=== PATIENT | male | born 1995 | race Caucasian/White ===

== ENCOUNTER 2024-09-11 09:01 | Emergency (ER) | payer BC, SELFPAY ==
[2024-09-11 09:16] VITALS: BP 131/81; PULSE 72; RESP 18; TEMP 36.6; O2SAT 95; BMI 25.5
[2024-09-11 09:28] LABS: Basophils % 0.6 %; Eosinophils # 0.4 10^3/uL (0.0-0.8); Eosinophils % 5.5 %; Hematocrit 41.6 % (37-53); Lymphocytes # 2.1 10^3/uL (0.8-4.8); Lymphocytes % 32.6 %; Mean Corpuscular HGB Conc 33.2 g/dL (30-55); Mean Corpuscular Hemoglobin 29.6 pg (27-33); Mean Corpuscular Volume 89.1 fl (82-101); Mean Platelet Volume 8.6 fL (7.4-10.4); Monocytes # 0.5 10^3/uL (0.2-0.9); Monocytes % 7.5 %; Neutrophils # 3.43 10^3/uL (1.8-7.7); Neutrophils % 53.3 %; Nucleated Red Blood Cells % 0 %; Platelet Count 282 10^3/cmm (157-399); Red Blood Count 4.67 10^6/uL (3.85-5.65); Red Cell Distribution Width 12.3 % (12.1-15.1); White Blood Count 6.42 10^3/uL (3.29-11.43)
--- NOTE | 2024-09-11 09:37 | ED_ITS ---
HPI - GI Bleed 2 General: Chief complaint: GI Bleed Stated complaint: blood in stool and urine Time Seen by Provider: 09/11/24 09:12 History of Present Illness: 29-year-old male presents emergency plan ing of left lower quadrant pain as well as bright red blood per rectum for the last 3 to 4 days. He is also noticed some hematuria that began this morning. No previous abdominal surgeries. He is concerned in part because he had recently started meloxicam. Associated symptoms: Denies abdominal pain, chills, fever(s) or rash Related Data Home Medications ?Medication ?Instructions ?Recorded ?Confirmed albuterol sulfate 90 mcg/actuation 1 inh inhalation UT N PRN Shortness 09/11/24 09/11/24 aerosol inhaler (Ventolin HFA) Of Breath Or Wheezing meloxicam 15 mg tablet 15 mg PO DAILY 09/11/2408/17 Previous Rx's ?Medication ?Instructions ?Recorded ciprofloxacin HCl 500 mg tablet 500 mg PO BID #14 tabs 09/11/24 (Cipro) hydrocodone 5 mg-acetaminophen 325 1 tab PO Q6H PRN pa in #10 tabs 09/11/24 mg tablet metronidazole 500 mg tablet 500 mg PO BID 7 days #14 t abs 09/11/24 promethazine 25 mg tablet 25 mg PO Q6H PRN nausea and 09/11/24 vomiting #20 tabs Allergies Allergy/AdvReac Type Severity Reaction Status Date / Time shellfish derived Allergy Unknown Verified 09/11/24 09:24 Review of Systems 2 Const: Denies: fever(s) or chills Card: Denies: chest pain Resp: Denies: dyspnea GI: Reports: hematochezia; Denies: abdominal pain : Reports: hematuria; Denies: dysuria, urinary frequency or urinary urgency Musc: Denies: neck pain or back pain Skin/Breast: Denies: rash Physical Exam 2 Const: COMMON NORMALS: no acute distress GENERAL APPEARANCE: cooperative and comfortable ORIENTATION/CONSCIOUSNESS: Yes awake, Yes oriented to person, Yes oriented to place and Yes oriented to time HENMT: COMMON NORMALS: normocephalic, atraumatic and hearing grossly normal bilaterally HEAD & SCALP: normocephalic and atraumatic Resp: COMMON NORMALS: normal respiratory effort, No retractions, No use of accessory muscles and clear to auscultation bilaterally AUSCULTATION: clear to auscultation bilaterally Cardio: COMMON NORMALS: regular rate, regular rhythm and No murmurs present (Cardio) RATE: regular rate RHYTHM: regular rhythm GI: COMMON NORMALS: No hepatosplenomegaly present AUSCULTATION: Yes normoactive bowel sounds PALPATION: Yes Tenderness to palpation present (GI) Details: LLQ, No Guarding due to palpation present (GI) and Yes No hepatosplenomegaly present Extremity: COMMON NORMALS: normal to inspection, capillary refill normal, no clubbing, cyanosis or edema, no calf tenderness and no pedal edema Neuro: SENSORIUM/ORIENTATION: Yes oriented to person, Yes oriented to place and Yes oriented to time Skin: COMMON NORMALS: no rashes or lesions noted GENERAL SKIN EXAM: no rashes or lesions noted Course 2 Vital Signs: Vital signs: Vital Signs Temperature 97.9 F 09/11/24 09:16 Pulse Rate 71 09/11/24 12:14 Respiratory Rate 18 09/11/24 09:16 Blood Pressure 124/67 09/11/24 12:14 Pulse Oximetry 98 09/11/24 12:14 Oxygen Delivery Me thod Room Air 09/11/24 09:16 MDM - GI Bleed Medical Decision Making Rectal exam no no external hemorrhoids no masses noted. No active bleeding. Suspect he has a subclinical diverticulitis he is mildly moderately tender in the left lower quadrant with your diverticuli but no radiographic evidence of active infection. Given his tenderness in that region however we will go ahead and start him on Cipro and Flagyl. Suspect it is for the rectal bleeding is coming from as well. We did not see any blood in his urine. I gave him diet instructions encouraged him to follow-up with his primary care doctor given his age who probably should have an early colonoscopy for this episode of rectal bleeding that could be done at some point in the future after this has been treated. Medical Records I reviewed the patient's medical records. Lab Data I reviewed the patient's lab results. 09/11/24 09:21 09/11/24 09:21 Radiology Impressions Abdomen/Pelvis CT 09/11/24 10:05 IMPRESSION: 1. No acute findings in the abdomen or pelvis. 2. Normal appendix. 3. A few sigmoid diverticuli. No evidence of acute diverticulitis. Notified Chris Plasencia DO at 09/11/2024 11:47 AM. Laboratory Results WBC 6.42 10^3/uL (3.29-11.43) 09/11/24 09:21 RBC 4.67 10^6/uL (3.85-5.65) 09/11/24 09:21 Hgb 13.80 g/dL (11.27-16.99) 09/11/24 09:21 Hct 41.6 % (37-53) 09/11/24 09:21 MCV 89.1 fl (82-101) 09/11/24 09:21 MCH 29.6 pg (27-33) 09/11/24 09:21 MCHC 33.2 g/dL (30-55) 09/11/24 09:21 RDW 12.3 % (12.1-15.1) 09/11/24 09:21 Plt Count 282 10^3/cmm (157-399) 09/11/24 09:21 MPV 8.6 fL (7.4-10.4) 09/11/24 09:21 Neut % (Auto) 53.3 % 09/11/24 09:21 Lymph % (Auto) 32.6 % 09/11/24 09:21 Hitchcock % (Auto) 7.5 % 09/11/24 09:21 Eos % (Auto) 5.5 % 09/11/24 09:21 Baso % (Auto) 0.6 % 09/11/24 09:21 Neut # (Auto) 3.43 10^3/uL (1.8-7.7) 09/11/24 09:21 Lymph # (Auto) 2.1 10^3/uL (0.8-4.8) 09/11/24 09:21 Hitchcock # (Auto) 0.5 10^3/uL (0.2-0.9) 09/11/24 09:21 Eos # (Auto) 0.4 10^3/uL (0.0-0.8) 09/11/24 09:21 Baso # (Auto) 0.0 10^3/uL (0.0-0.1) 09/11/24 09:21 Nucleated RBC % (auto) 0 % 09/11/24 09:21 Nucleated RBCs # 0.0 /100WBC 09/11/24 09:21 Sodium 139 mmol/L (136-145) 09/11/24 09:21 Potassium 4.6 mmol/L (3.5-5.1) 09/11/24 09:21 Chloride 104 mmol/L (98-107) 09/11/24 09:21 Carbon Dioxide 26 mmol/L (22-29) 09/11/24 09:21 Anion Gap 13.6 (5-19) 09/11/24 09:21 BUN 15 mg/dL (6-20) 09/11/24 09:21 Creatinine 0.6 mg/dL (0.7-1.2) L 09/11/24 09:21 GFR Calculation 161.6 mL/min (90-130) H 09/11/24 09:21 Glucose 103 mg/dL (65-115) 09/11/24 09:21 Calculated Osmolality 289 mOsm/kg (285-295) 09/11/24 09:21 Calcium 9.1 mg/dL (8.5-10.5) 09/11/24 09:21 Total Bilirubin 0.2 mg/dL (0.15-1.2) 09/11/24 09:21 AST 36 U/L (0-40) 09/11/24 09:21 ALT 60 U/L (0-41) H 09/11/24 09:21 Alkaline Phosphatase 56 U/L (40-130) 09/11/24 09:21 Total Protein 7.4 g/dL (6.6-8.7) 09/11/24 09:21 Albumin 4.5 g/dL (3.5-5.2) 09/11/24 09:21 Globulin 2.9 g/dL (1.3-4.6) 09/11/24 09:21 Urine Color Yellow (Yellow) 09/11/24:28 Urine Appearance Clear (CLEAR) 09/11/24: Urine pH 7.5 (5-7) 09/11/24: Ur Specific [place] 1.019 (1.005-1.030) 09/11/24:28 Urine Protein Negative (Negative) 09/11/24: Urine Glucose (UA) Negative (Normal) 09/11/24: Urine Ketones Negative (Negative) 09/11/24: Urine Blood Negative (Negative) 09/11/24 09:28 Urine Nitrate Negative (Negative) 09/11/24 09:28 Urine Bilirubin Negative (Negative) 09/11/24 09:28 Urine Urobilinogen 0.2 mg/dL (Negative) 09/11/24 09:28 Ur Leukocyte Esterase Negative (Negative) 09/11/24 09:28 Amorphous Sediment Not Reportable 09/11/24 09:28 All radiology interpretation(s) finalized by discharge Discharge Plan Discharge Patient Disposition: Home Clinical Impression: Diverticulitis Condition: Stable Prescriptions: New promethazine 25 mg tablet 25 mg PO Q6H PRN (Reason: nausea and vomiting) Qty: 20 0RF ciprofloxacin HCl [Cipro] 500 mg tablet 500 mg PO BID Qty: 14 0RF metronidazole 500 mg tablet 500 mg PO BID 7 Days Qty: 14 0RF hydrocodone-acetaminophen 5-325 mg tablet 1 tab PO Q6H PRN (Reason: pain) Qty: 10 0RF No Action meloxicam 15 mg Tablet 15 mg PO DAILY albuterol sulfate [Ventolin HFA] 90 mcg/actuation Hfa Aerosol Inhaler 1 inh INHALATION PRN PRN (Reason: Shortness Of Breath Or Wheezing) Discharge Orders: Discharge ED (Routine); Ordered 09/11/24 Ordered By: Chris Plasencia Discharge Diet: As Directed Discharge Activity: Increase activity as tolerated Patient Instructions: Diverticulitis (ED), Diverticulitis Diet (ED), Opioid Safety, Pain Management Print Language: Costa Rican Coding Level of Care Code ED 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
[2024-09-11 09:46] LABS: Alanine Aminotransferase 60 U/L (0-41); Albumin Level 4.5 g/dL (3.5-5.2); Alkaline Phosphatase 56 U/L (40-130); Anion Gap 13.6 (5-19); Aspartate Amino Transferase 36 U/L (0-40); Blood Urea Nitrogen 15 mg/dL (6-20); Calcium 9.1 mg/dL (8.5-10.5); Carbon Dioxide 26 mmol/L (22-29); Chloride 104 mmol/L (98-107); Creatinine Clr Calc Pharmacy 235.8917; Globulin 2.9 g/dL (1.3-4.6); Glomerular Filtration Rate 161.6 mL/min (90-130); Glucose 103 mg/dL (65-115); Osmolality Calculated 289 mOsm/kg (285-295); Potassium 4.6 mmol/L (3.5-5.1); Sodium 139 mmol/L (136-145); Total Bilirubin 0.2 mg/dL (0.15-1.2); Total Protein 7.4 g/dL (6.6-8.7)
[2024-09-11 10:04] LABS: Add Urine Microscopic? NO
--- NOTE | 2024-09-11 10:05 | CT_ITS ---
WS: [id number] CT ABDOMEN PELVIS TECHNIQUE: Contrast-enhanced CT of the abdomen and pelvis with coronal and sagittal reformatted images. CLINICAL INFORMATION: abd pain COMPARISON: None. DLP: 778.[address] scans at [facility] use at least one of these dose optimization techniques: automated exposure control; mA and/or kV adjustment per patient size (includes targeted exams where dose is matched to clinical indication); or iterative reconstruction. FINDINGS: Lung bases are well aerated. Fatty liver. Normal portal vein and splenic vein. Normal GE junction. Normal pancreatic parenchymal enhancement. Normal caliber abdominal aorta. Celiac and SMA are patent. Gallbladder is contracted. Adrenal glands are normal. Normal renal parenchymal enhancement. No hydronephrosis. A few sigmoid diverticuli. No evidence of acute diverticulitis. Descending LEFT colon is decompressed. Normal appendix. No evidence of small or large bowel obstruction. No free fluid in the abdomen or pelvis. CT/CT abdomen pelvis w con* [id number] IMPRESSION: 1. No acute findings in the abdomen or pelvis. 2. Normal appendix. 3. A few sigmoid diverticuli. No evidence of acute diverticulitis. Notified Chris Plasencia DO at 09/11/2024 11:47 AM.
[2024-09-11 10:10] LABS: Bilirubin Urine Negative (Negative); Blood Urine Negative (Negative); Glucose Urine UA Negative (Normal); Ketones Urine Negative (Negative); Leukocyte Esterase Urine Negative (Negative); Nitrate Urine Negative (Negative); Protein Urine Negative (Negative); Specific Gravity, Urine 1.019 (1.005-1.030); Urine Appearance Clear (CLEAR); Urine Color Yellow (Yellow); Urobilinogen Urine 0.2 mg/dL (Negative); pH Urine 7.5 (5-7)
[2024-09-11 10:13] LABS: Charge for UA Resulting for Rev
[2024-09-11] MEDS: iohexol 350 mg/mL 500 mL Btl (per mL) IV (11:17)
[2024-09-11] MEDS: iohexol 350 mg/mL 500 mL Btl (per mL) PO (11:18)
[2024-09-11 11:40] VITALS: BP 124/67; PULSE 76; O2SAT 98
[2024-09-11 12:14] VITALS: BP 124/67; PULSE 71; O2SAT 98
== END 2024-09-11 12:18 | disposition home or self-care (01) ==
PROVIDERS: Emergency Provider Family Medicine
DX: K57.92 Diverticulitis of intestine, part unspecified, without perforation or abscess without bleeding (principal)
CPT/HCPCS: 74177; 80053; 81003; 85025; 99285

== ENCOUNTER 2025-05-18 10:05 | Emergency (ER) | payer SELFPAY ==
[2025-05-18 10:07] VITALS: BP 150/97; PULSE 82; TEMP 36.7; O2SAT 100; BMI 28.0
--- OUTSIDE RECORDS SUMMARY | 2025-05-18 10:12 | XMS_ITS | Data Portability ---
Author Organization [facility], Chuck, [facility] Address [address] [address] Assessment No assessment recorded. Plan of Treatment Reminders Order Date Submit Date Provider Last Modified By Organization Details Last Modified Time Details Appointments None recorded. Lab None recorded. Referral None recorded. Procedures None recorded. Surgeries None recorded. Imaging None recorded. Medication Orders Bactrim DS 800 mg-160 mg tablet 2024 025 [facility] [place], [address], 5 14:52:10 cyclobenzap rine 5 mg tablet 2024 025 [facility] [place], [address], 5 15:25:50 naproxen 250 mg tablet 2024 025 [facility] [place], [address], 5 05:00:48 Patient TargetsNo targets recorded. Patient Instructions Encounter Date Encounter Id Patient Instructions Last Modified By Organization Details Last Modified Time 11/12/2024 [id number] back pain: care instructions Not available 11/12/2024 11:33:25 Reason for Referral None Reported. Problems Name Problem SNOMED Code Status Onset Date Resolution Date Notes Provider Name and Address Organization Details Recorded Time Acute cellulitis Active 025 Doni Leon MD [address] [place], [address] , [facility] Problem Notes None recorded. Procedures Surgical History Date Name Laterality Status Provider Name and Address Organization Details Recorded Time [facility] 11[facility]11[facility]40 Imaging Results None recorded. Procedure Notes None recorded. Medical Equipment None Reported. Allergies No known drug allergies Medications Name Sig Start Date Stop Date Status Note LastModified by Organization Details LastModified Time naproxen 250 mg tablet Take 1 tablet twice a day by oral route for 10 days. 11/29 completed Not Available Not Available Not Available Bactrim DS 800 mg-160 mg tablet Take 1 tablet every 12 hours by oral route. 2024 active Not Available Not Available Not Avai lable cyclobenzapri ne 5 mg tablet Take 1 tablet 3 times a day by oral route as needed, for back pain/mu scle spasm. 12/25 completed Not Available Not Available Not Available albuterol sulfate active Not Available Not Available Not Available Zyrtec active Not Available Not Availa ble Not Available Vitals Date Recorded Body height Body mass index (BMI) Body weight Heart rate Respiratory rate Body temperature Systolic And Diastolic Provider Name and Address Organization Details Last Updated DateTime 5 193.04 cm 27.6 kg/m2 048126. 47 g 86 /min 16 /min 98.2 [degF] 128/70 mm[Hg] [facility]06 Date Recorded Body height Body mass index (BMI) Body weight Oxygen saturation Oxygen saturation in Arterial blood by Pulse oximetry Heart rate Respiratory rate Body temperature Systolic And Diastolic Provider Name and Address Organization Details Last Updated DateTime 5 193.04 cm 26.9 kg/m2 752082. 91 g 98 % 98 % 74 /min 16 /min 98.2 [degF] 134/80 mm[Hg] [facility] 14:[facility]33 Social History Question Answer Notes LastModified by Organizat ion Details LastModified Time Tobacco Smoking Status Current Every Day Smoker Nicole Mayes dorota [facility], .LJeysonJeyson 11/12/2024 11:11:28 What Was The Date Of Your Most Recent Tobacco Screening? 12/25/2024 [email or web address] Information not available 12/25/2024 Sex: Unknown Functional Status None recorded. Mental Status None recorded. Family History Nothing Reported. Medical History No medical history recorded. Past Encounters Encounter ID Performer Location Encounter Start Date Encounter Closed Date Diagnosis/Indication Diagnosis SNOMED-CT Code Diagnosis ICD10 Code Diagnosis IMO Codes Diagnosis Note [id number] CHAITANYA SMITH [facility] ([facility]) [address] [place] [phone] 11/12/2024 11:05:48 11/12/2024 11:37:03 Low back pain 762572680 M54.59 [id number] Patient advised to take medication as directed here. Patient advised to rest initially and then slowly increase activity level. Monitor changes in symptoms such as numbness, tingling or weakness in legs, changes in bowel or bladder habits or worsening back pain. Proper ergonomics discussed. Home physical therapy program given to patient. Patient will call if symptoms worsen or if pain persists. [id number] Doni Leon MD [facility] ([facility]) [address] [place] [phone] 12/25/2024 14:37:29 12/25/2024 17:08:43 Acute cellulitis 6900532741 L03.90 [id number] Likely a cellulitis with small abscess formation that has spontaneou sly ruptured. Will start antibiotic s. Health Concerns Section Related Observation LastModified by Organization Detai ls LastModified Time None Recorded Concern Status LastModified by Organization Details LastModified Time None Recorded Advance Directives Directive None Recorded Payers Insurance Date Sequence Insurance Name Policy Number Policy Mehta Covered Member ID Mehta Member ID Guarantor Name 12/25/2024 1 KASSIE-THOMAS (PPO) [id number] Ryder Norton [id number] Notes Date Note Type Note Provider Name and Address Organization Details Recorded Time 11/12/2024 text/html Back PainReporte d by PatientROS as noted in the HPI walk in patientpatient is here today for lower back pain years ago and has had a full back work up and patient has bone spurs in his back but this morning his pain is worse and it is hard for him to move. CHAITANYA SMITH [address] [place], [address], [facility], Angela. 11/12/2024 11:35:24 12/25/2024 text/html Skin LesionRepor coty by PatientROS as noted in the HPI walk in patientpatient is here today for thick bloody drainage coming out of his belly button, patient said that it is very painful and started last night. Doni Leon MD [address] [place], [address], [facility], LJeysonLJaxon. 12/25/2024 17:06:43
--- NOTE | 2025-05-18 10:14 | XR_ITS ---
WS: [id number] Left hand, 3 views, 05/18/2025 Clinical Data: injury/crush injury Comparison: None. Findings: No new fractures or dislocations are seen. The soft tissues are unremarkable. The joint spaces are normal There is deformity of the left fifth metacarpal which probably represents an old healed fracture. XR/XR hand LT min 3V* [id number] Impression: Negative left hand.
--- NOTE | 2025-05-18 10:32 | W.ED.UPPEXIN ---
HPI - Extremity Injury (Upper) General: Chief Complaint: Extremity Injury, Upper Stated Complaint: L hand pain Time Seen by Provider: 05/18/25 10:26 Source: patient Mode of arrival: ambulatory Limitations: no limitations History of Present Illness: Patient is a 30-year-old male who presents to ED today with a complaint of left hand pain that began yesterday after his car accidentally fell onto his hand. Patient states his hand was not trapped underneath the vehicle for more than a few seconds as he states he states he immediately ripped it out from underneath . He is having pain to the dorsum of his left hand as well as his left 3rd and 4th digits. He has not noticed any significant swelling or ecchymosis. MD complaint: injury to: left and hand Onset (ago): day(s) (yesterday) Other Extremity Injury: Left: fingers and hand Other injuries: none Handedness: left Place: home Severity: moderate Relieving factors: immobilization Exacerbating factors: movement of extremity Context: direct blow and crush Associated symptoms: Reports no associated symptoms; Denies weakness in extremities Treatments prior to arrival: bandage Related Data Home Medications ?Medication ?Instructions ?Recorded ?Confirmed albuterol sulfate 90 mcg/actuation 1 inh inhalation PRN PRN Shortness 09/11/24 09/11/24 aerosol inhaler (Ventolin HFA) Of Breath Or Wheezing meloxicam 15 mg tablet 15 mg PO DAILY 09/11/24 09/11/24 Previous Rx's ?Medication ?Instructions ?Recorded ciprofloxacin HCl 500 mg tablet 500 mg PO BID #14 tabs 09/11/24 (Cipro) hydrocodone 5 mg-acetaminophen 325 1 tab PO Q6H PRN pain #10 tabs 09/11/24 mg tablet promethazine 25 mg tablet 25 mg PO Q6H PRN nausea and 09/11/24 vomiting #20 tabs Allergies Allergy/AdvReac Type Severity Reaction Status Date / Time shellfish derived Allergy Unknown Verified 05/18/25 10:14 Review of Systems Musc: Reports: extremity pain (L hand); Denies: extremity swelling Neuro: Denies: numbness in extremities, weakness in extremities or sensory changes Physical Exam Const: COMMON NORMALS: no acute distress, average body habitus, no limitations, healthy appearing, alert and well nourished GENERAL APPEARANCE: cooperative ORIENTATION/CONSCIOUSNESS: Yes awake, Yes oriented to person, Yes oriented to place and Yes oriented to time Extremity: COMMON NORMALS: capillary refill normal GENERAL: Yes normal exam except as noted LEFT UPPER EXTREMITY: Yes hand & digits Left hand and digits: Yes inspection (overall normal gross inspection of L hand), Yes palpation (TTP dorsal mid hand into 3-4 digits; no obvious edema/deformity), Yes ROM (limited ROM of 3-4 digits due to pain-no obvious bony deformity) and Yes neurovascular exam (normal) Neuro: COMMON NORMALS: moves all extremities, no focal motor deficits and no sensory deficits noted SENSORIUM/ORIENTATION: Yes alert, Yes oriented to person, Yes oriented to place and Yes oriented to time Skin: TRAUMA: no lacerations or abrasions Course Vital Signs: Vital signs: Vital Signs Temperature 98.0 F 05/18/25 10:07 Pulse Rate 82 05/18/25 10:07 Blood Pressure 150/97 05/18/25 10:07 Pulse Oximetry 100 05/18/25 10:07 Oxygen Delivery Me thod Room Air 05/18/25 10:07 MDM - Extremity Injury (Upper) Medical Decision Making XR unremarkable. Patient will be allowed DC with conservative therapy. At this time I do not have any concern for a compartment syndrome or other emergent condition involving the hand. Return to ED precautions discussed as well as appropriate f/u with primary care if symptoms are not improving. Differential Diagnosis Likely fracture of wrist, finger sprain, dislocation of finger and fracture of hand Medical Records I reviewed the patient's medical records. Lab Data Radiology Impressions Hand X-Ray 05/18/25 10:14 Impression: Negative left hand. All radiology interpretation(s) finalized by discharge Discharge Plan Discharge Patient Disposition: Home Clinical Impression: Contusion of left hand Qualifiers: Encounter type: initial encounter Qualified Code(s): S60.222A - Contusion of left hand, initial encounter Condition: Stable Prescriptions: No Action meloxicam 15 mg Tablet 15 mg PO DAILY albuterol sulfate [Ventolin HFA] 90 mcg/actuation Hfa Aerosol Inhaler 1 inh INHALATION PRN PRN (Reason: Shortness Of Breath Or Wheezing) promethazine 25 mg tablet 25 mg PO Q6H PRN (Reason: nausea and vomiting) Qty: 20 0RF ciprofloxacin HCl [Cipro] 500 mg tablet 500 mg PO BID Qty: 14 0RF hydrocodone-acetaminophen 5-325 mg tablet 1 tab PO Q6H PRN (Reason: pain) Qty: 10 0RF Discharge Orders: Discharge ED (Routine); Ordered 05/18/25 Ordered By: Naomi Rodriguez Patient Instructions: Patient Portal & Hayes Instructions Activity Restrictions/Additional Instructions: As we discussed, your hand x-ray was unremarkable. You may ice and elevate the extremity as well as continue to use [id number] analgesics such as Tylenol and Ibuprofen. Please follow-up with primary care in 2 weeks if symptoms are not improving. Stand Alone Forms: Work/School Release Print Language: Yakut Coding Level of Care Code ED [employer] for Ale Proctor
== END 2025-05-18 11:08 | disposition home or self-care (01) ==
PROVIDERS: Emergency Provider Physician Assistant
DX: S60.222A Contusion of left hand, initial encounter (principal); W20.8XXA Other cause of strike by thrown, projected or falling object, initial encounter
CPT/HCPCS: 73130; 99283

== ENCOUNTER 2025-07-11 14:53 | Emergency (ER) | payer MEDICAID, SELFPAY ==
[2025-07-11 14:55] VITALS: BP 137/89; PULSE 84; RESP 18; TEMP 36.6; O2SAT 99
--- NOTE | 2025-07-11 14:57 | W.ED.ALLEREA ---
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 start having immediately short of breath and having some feeling of throat swelling EMS states he did have some airway edema and wheezing they did give him 0.5 epinephrine along with 10 mg IV Decadron patient states he feels much improved states he feels at his baseline he denies any shortness of breath denies any throat swelling Related Data Home Medications ?Medication ?Instructions ?Recorded ?Confirmed albuterol sulfate 90 mcg/actuation 1 inh inhalation PRN PRN Shortness 09/11/24 09/11/24 aerosol inhaler (Ventolin HFA) Of Breath Or Wheezing meloxicam 15 mg tablet 15 mg PO DAILY 09/11/24 09/11/24 Previous Rx's ?Medication ?Instructions ?Recorded ciprofloxacin HCl 500 mg tablet 500 mg PO BID #14 tabs 09/11/24 (Cipro) hydrocodone 5 mg-acetaminophen 325 1 tab PO Q6H PRN pain #10 tabs 09/11/24 mg tablet promethazine 25 mg tablet 25 mg PO Q6H PRN nausea and 09/11/24 vomiting #20 tabs epinephrine 0.3 mg/0.3 mL 0.3 mg (0.3 mL) IM Q20M PRN 07/11/25 injection, auto-injector (EpiPen anaphylaxis #2 ea 2-Raymundo) Allergies Allergy/AdvReac Type Severity Reaction Status Date / Time shellfish derived Allergy Unknown Verified 05/18/25 10:14 Physical Exam Const: COMMON NORMALS: no acute distress, patient oriented x3 and healthy appearing HENMT: COMMON NORMALS: normocephalic and atraumatic HEAD & SCALP: normocephalic and atraumatic THROAT: posterior oropharynx normal Eye: COMMON NORMALS: Equal, round and reactive pupils present and EOMs intact bilaterally PUPIL: Yes Equal, round and reactive pupils present Neck/C-Spine: COMMON NORMALS: full ROM and supple Chest: COMMONS NORMALS: normal inspection of the chest Resp: COMMON NORMALS: normal respiratory effort, No retractions, No use of accessory muscles and clear to auscultation bilaterally AUSCULTATION: clear to auscultation bilaterally Cardio: COMMON NORMALS: regular rate, regular rhythm and No murmurs present (Cardio) RATE: regular rate RHYTHM: regular rhythm Extremity: COMMON NORMALS: normal to inspection and full ROM Neuro: COMMON NORMALS: patient oriented x3, moves all extremities and no focal motor deficits Psych: COMMON NORMALS: mental status grossly normal, Normal thought process present and cooperative THOUGHT PROCESS: Normal thought process present Skin: COMMON NORMALS: no rashes or lesions noted and no wounds GENERAL SKIN EXAM: no rashes or lesions noted Course Vital Signs: Vital signs: Vital Signs Temperature 97.8 F 07/11/25 14:55 Pulse Rate 72 07/11/25 15:34 Respiratory Rate 18 07/11/25 15:08 Blood Pressure 134/72 07/11/25 15:34 Pulse Oximetry 98 07/11/25 15:34 Oxygen Delivery Me thod Room Air 07/11/25 15:34 MDM - Allergic Reaction Medical Decision Making Patient presents with allergic reaction to shrimp he has been much improved after epi in the field. Did observe him here and has had no rebound he said no shortness of breath no throat swelling no rash he is vitals have been stable here he is stable for discharge at this time we will discharge him with a prescription for an EpiPen he is follow-up his PCP and return if worsening No radiology studies performed this visit Discharge Plan Discharge Patient Disposition: Home Clinical Impression: Allergic reaction Condition: Stable Prescriptions: New epinephrine [EpiPen 2-Raymundo] 0.3 mg/0.3 mL auto-injector 0.3 mg IM Q20M PRN (Reason: anaphylaxis) Qty: 2 0RF Rx Instructions: for 2 doses No Action meloxicam 15 mg Tablet 15 mg PO DAILY albuterol sulfate [Ventolin HFA] 90 mcg/actuation Hfa Aerosol Inhaler 1 inh INHALATION PRN PRN (Reason: Shortness Of Breath Or Wheezing) promethazine 25 mg tablet 25 mg PO Q6H PRN (Reason: nausea and vomiting) Qty: 20 0RF ciprofloxacin HCl [Cipro] 500 mg tablet 500 mg PO BID Qty: 14 0RF hydrocodone-acetaminophen 5-325 mg tablet 1 tab PO Q6H PRN (Reason: pain) Qty: 10 0RF Discharge Orders: Discharge ED (Routine); Ordered 07/11/25 Ordered By: Birdie Hoang Discharge Diet: Advance as tolerated Discharge Activity: Resume usual activity Patient Instructions: General Allergic Reaction (ED) Print Language: Sami Coding Level of Care Code ED Clinical Specialist Medical Device for Ale Proctor
--- OUTSIDE RECORDS SUMMARY | 2025-07-11 14:57 | XMS_ITS | Data Portability ---
Author Organization [facility], [place], [facility] Address [address] [address] Assessment No assessment recorded. Plan of Treatment Reminders Order Date Submit Date Provider Last Modified By Organization Details Last Modified Time Details Appointments None recorded. Lab None recorded. Referral None recorded. Procedures None recorded. Surgeries None recorded. Imaging None recorded. Medication Orders Bactrim DS 800 mg-160 mg tablet 2024 025 [facility] [place], [address], 5 14:52:10 cyclobenzap rine 5 mg tablet 2024 025 [facility] [address] [place], [address], 5 15:25:50 naproxen 250 mg tablet 2024 025 [facility] [address] [place], [address], 5 05:00:48 Patient TargetsNo targets recorded. Patient Instructions Encounter Date Encounter Id Patient Instructions Last Modified By Organization Details Last Modified Time 11/12/2024 [id number] back pain: care instructions [email or web address] Not available 11/12/2024 11:33:25 Reason for Referral None Reported. Problems Name Problem SNOMED Code Status Onset Date Resolution Date Notes Provider Name and Address Organization Details Recorded Time Acute cellulitis Active 025 Doni Leon MD [address] [place], [address] , [facility] 14:[facility]06 Problem Notes None recorded. Procedures Surgical History Date Name Laterality Status Provider Name and Address Organization Details Recorded Time operation on oral cavity completed [facility] 11/12/2024 11:11:40 Imaging Results None recorded. Procedure [...] Updated DateTime 5 193.04 cm 27.6 kg/m2 781574. 47 g 86 /min 16 /min 98.2 [degF] 128/70 mm[Hg] [facility] 11:14[facility]06 Date Recorded Body height Body mass index (BMI) Body weight Oxygen saturation Heart rate Respiratory rate Body temperature Systolic And Diastolic Provider Name and Address Organization Details Last Updated DateTime 5 193.04 cm 26.9 kg/m2 731633. 91 g 98 % 74 /min 16 /min 98.2 [degF] 134/80 mm[Hg] [facility] 14:43:33 Social History Question Answer Notes LastModified by Organizat ion Details LastModified Time Tobacco Smoking Status Current Every Day Smoker [place] Stanley [facility] [address], [place] 11/12/2024 11:11:28 What Was The Date Of Your Most Recent Tobacco Screening? 12/25/2024 [email or web address] Information not available 12/25/2024 Sex: Unknown Functional Status None recorded. Mental Status None recorded. Family History Nothing Reported. Medical History No medical history recorded. Past Encounters Encounter ID Performer Location Encounter Start Date Encounter Closed Date Diagnosis/Indication Diagnosis SNOMED-CT Code Diagnosis ICD10 Code Diagnosis IMO Codes Diagnosis Note [id number] CHAITANYA SMITH [facility] ([facility]) [address] [place] [phone] 11/12/2024 11:05:48 11/12/2024 11:37:03 Low back pain [id number] M54.59 [id number] Patient advised to take medication as directed here. Patient advised to rest initially and then slowly increase activity level. Monitor changes in symptoms such as numbness, tingling or weakness in legs, changes in bowel or bladder habits or worsening back pain. Proper ergonomics discussed. Home physical therapy program given to patient. Patient will call if symptoms worsen or if pain persists. [id number] Doni Leon MD [facility] ([facility]) [address] [place] [phone] 12/25/2024 14:37:29 12/25/2024 17:08:43 Acute cellulitis [id number] L03.90 [id number] Likely a cellulitis with small abscess formation [...] ID Guarantor Name 12/25/2024 1 KASSIE-THOMAS (PPO) [id number] Ryder [place] [id number] [place] Notes Date Note Type Note Provider Name [...] hard for him to move. CHAITANYA SMITH [address] [place], [address], [facility], [place]. 11/12/2024 11:35:24 12/25/2024 text/html Skin LesionRepor coty by PatientROS as noted in the HPI walk in patientpatient is here today for thick bloody drainage coming out of his belly button, patient said that it is very painful and started last night. Doni Leon MD [address] [place], [address], [facility], [place]. 12/25/2024 17:06:43
[2025-07-11] MEDS: diphenhydrAMINE 50 mg/mL SDV 1mL IVP (15:07)
[2025-07-11 15:08] VITALS: BP 137/89; PULSE 81; RESP 18; O2SAT 98
[2025-07-11 15:34] VITALS: BP 134/72; PULSE 72; O2SAT 98
== END 2025-07-11 15:52 | disposition home or self-care (01) ==
PROVIDERS: Emergency Provider Emergency Medicine
DX: T78.19XA Other adverse food reactions, not elsewhere classified, initial encounter (principal); Z91.013 Allergy to seafood; X58.XXXA Exposure to other specified factors, initial encounter
CPT/HCPCS: 96374; 96375; 99284; J1200; J3490